=== PATIENT | female | born 1975 | race African-American/Black ===

== ENCOUNTER 2020-05-03 23:39 | Emergency (ER) | payer MEDICAID ==
[~2020-05-03] VITALS: Ht 162.6 cm; Wt 63.5 kg
[2020-05-04 03:26] VITALS: BP 124/74
== END 2020-05-04 03:36 | disposition home or self-care (01) ==
LOC: ER 23:39
DX: M79.5 Residual foreign body in soft tissue (principal); M79.672 Pain in left foot
CPT/HCPCS: 73620